=== PATIENT | male | born 1990 | race Caucasian/White ===

== ENCOUNTER 2021-12-29 06:35 | Outpatient (CLI) | payer BC, SELFPAY ==
--- NOTE | 2021-12-29 | US_ITS ---
WS: [id number] RIGHT UPPER QUADRANT ULTRASOUND HISTORY: GALLBLADDER FOR PAIN RUQ COMPARISON: None available. Liver: 20.1 cm in length. Liver is moderately enlarged with mildly coarsened echotexture throughout. Most consistent with hepatic steatosis. No bile duct dilatation. Portal Vein: Normal hepatopetal flow with monophasic waveform. Gallbladder: Normally distended gallbladder with no stones or wall thickening. CBD: 0.5 cm Pancreas: Normal size and echogenicity. Right kidney: 11.7 cm in length. Normal size and echogenicity. No hydronephrosis or mass. Aorta and IVC: Unremarkable abdominal aorta and IVC. No ascites. Patient directed the box feeder to the palpable area along the midline which appears related to the xiphoid process. US/US abdomen limited [id number] IMPRESSION: 1. Moderate hepatomegaly and hepatic steatosis. 2. Negative gallbladder.
== END 2021-12-29 06:36 | disposition home or self-care (01) ==
LOC: RAD 06:36
PROVIDERS: PCP Family Medicine; Visit Provider Pediatrics
DX: R10.13 Epigastric pain (principal); R10.11 Right upper quadrant pain; R16.0 Hepatomegaly, not elsewhere classified; K76.0 Fatty (change of) liver, not elsewhere classified
CPT/HCPCS: 76705

== ENCOUNTER 2024-03-07 01:34 | Emergency (ER) | payer BC, SELFPAY ==
[2024-03-07 01:37] VITALS: BP 207/145; PULSE 94; RESP 18; O2SAT 97; BMI 45.0
--- NOTE | 2024-03-07 01:49 | XRR_ITS ---
PROCEDURE INFORMATION: Exam: XR Right Shoulder Exam date and time: 03/07/2024 2:22 AM Age: 34 years old Clinical indication: Pain and injury or trauma; Other: Reached for a glass; Other: Lrom; Shoulder; Right; Additional info: Right shoulder pain TECHNIQUE: Imaging protocol: Radiologic exam of the right shoulder. Views: 2 or more views. COMPARISON: No relevant prior studies available. FINDINGS: Bones/joints: No evidence of acute fracture or dislocation. No erosive disease. No significant degenerative change. Soft tissues: Normal. XR/XR shoulder RT min 2V* [id number] IMPRESSION: No acute bony injury.
--- NOTE | 2024-03-07 02:00 | W.ED.EXTPRO ---
HPI - Extremity Problem General: Chief complaint: Extremity Injury, Upper Stated complaint: Right shoulder pain Time Seen by Provider: 03/07/24 01:55 History of Present Illness: Patient presents to the ER with right shoulder pain. Patient says he was reaching for a glass of water when he felt a pop and had instantaneous sharp stabbing burning pain. Pain has improved a little bit when he keeps his arm pain to his side and does not move it. Patient has very limited range of motion secondary to pain. Patient does not have any prior shoulder problems. Related Data Home Medications Medication Instructions Recorded Confirmed blood sugar diagnostic (ReliOn 12/04/21 12/04/21 Prime Test Strips) blood-glucose meter (ReliOn 12/04/21 12/04/21 All-In-One Meter kit) ergocalciferol (vitamin D2) 1,250 1,250 mcg PO DAILY 12/04/21 03/07/24 mcg (50,000 unit) capsule fluconazole 150 mg tablet 150 mg PO DAILY 12/04/21 03/07/24 insulin needles (disposable) 30 X 12/04/21 12/04/21 3/4 lancing device 12/04/21 12/04/21 lisinopril 5 mg tablet 5 mg PO DAILY 12/04/21 03/07/24 metformin 500 mg tablet 500 mg PO BID 12/04/21 03/07/24 nystatin 100,000 unit/gram topical 1 applic topical BID 12/04/21 03/07/24 cream Previous Rx's Medication Instructions Recorded meloxicam 7.5 mg tablet 7.5 mg PO .Twice daily #14 tabs 03/07/24 Allergies Allergy/AdvReac Type Severity Reaction Status Date / Time ampicillin Allergy ALGY-Hives Verified 03/07/24 01:42 Review of Systems General: Reports: 10 or more systems reviewed and unremarkable except in HPI and below Physical Exam Const: COMMON NORMALS: no acute distress, average body habitus, patient oriented x3, no limitations, healthy appearing, alert and well nourished HENMT: COMMON NORMALS: normocephalic, atraumatic, hearing grossly normal bilaterally, Normal external nose present and moist oral mucous membranes HEAD & SCALP: normocephalic and atraumatic NOSE: Normal external nose present Neck/C-Spine: COMMON NORMALS: full ROM, no lymphadenopathy, supple, no meningeal signs, no JVD and Thyroid normal THYROID: Thyroid normal Chest: COMMONS NORMALS: normal inspection of the chest and normal palpation of entire chest wall Resp: COMMON NORMALS: normal respiratory effort, No retractions, No use of accessory muscles and clear to auscultation bilaterally AUSCULTATION: clear to auscultation bilaterally Cardio: COMMON NORMALS: no JVD, regular rate, regular rhythm, S1 normal heart sound present, S2 normal heart sound present, No gallops present (Cardio), No clicks present (Cardio), No murmurs present (Cardio) and No rub (Cardio) RATE: regular rate RHYTHM: regular rhythm HEART SOUNDS: S1 normal heart sound present and S2 normal heart sound present GI: COMMON NORMALS: Normal to inspection, nondistended, normoactive bowel sounds present, Soft to palpation, non-tender, No hepatosplenomegaly present and no masses PALPATION: Yes Soft to palpation and Yes No hepatosplenomegaly present Extremity: NARRATIVE EXTREMITY EXAM: Limited range of motion secondary to pain, no obvious step-off deformity crepitus, very tender to palpation over anterior shoulder joint and AC joint region. Neuro: COMMON NORMALS: patient oriented x3 SENSORIUM/ORIENTATION: Yes alert MENINGEAL SIGNS: Yes no meningeal signs Course Vital Signs: Vital signs: Vital Signs Pulse Rate 94 03/07/24 01:37 Respiratory Rate 18 03/07/24 01:37 Blood Pressure 207/145 03/07/24 01:37 Pulse Oximetry 97 03/07/24 01:37 Oxygen Delivery Me thod Room Air 03/07/24 01:37 MDM - Extremity (Nontraumatic) Medical Decision Making Patient declined pain medicine, x-ray was read off as negative by the radiologist, patient was placed in a sling and sent home with meloxicam and should follow-up with his PCP. Medical Records I reviewed the patient's medical records. Lab Data I reviewed the patient's lab results. Radiology Impressions Shoulder X-Ray 03/07/24 01:49 IMPRESSION: No acute bony injury. All radiology interpretation(s) finalized by discharge Discharge Plan Discharge Patient Disposition: Home Clinical Impression: Acute pain of right shoulder Condition: Stable Prescriptions: New meloxicam 7.5 mg tablet 7.5 mg PO .Twice daily Qty: 14 0RF No Action (DME) ReliOn Prime Test Strips Strip See Rx Instructions .ROUTE Rx Instructions: As directed fluconazole 150 mg tablet 150 mg PO DAILY metformin 500 mg tablet 500 mg PO BID ergocalciferol (vitamin D2) 1,250 mcg (50,000 unit) capsule 1,250 mcg PO DAILY lisinopril 5 mg tablet 5 mg PO DAILY (DME) lancing device Misc See Rx Instructions .ROUTE Rx Instructions: As directed nystatin 100,000 unit/gram cream 1 applic topical BID (DME) blood-glucose meter [ReliOn All-In-One Meter] Kit See Rx Instructions .ROUTE Rx Instructions: As directed (DME) insulin needles (disposable) 30 X 3/4 needle See Rx Instructions .ROUTE Rx Instructions: As directed Discharge Orders: Discharge ED (Routine); Ordered 03/07/24 Ordered By: Castillo Ledezma Referrals: Dwain Elliott [Primary Care Provider] - 1 week Patient Instructions: Shoulder Pain (ED) Activity Restrictions/Additional Instructions: Your x-rays were read by the radiologist as no acute fracture, you have pain medicine that has been sent to your pharmacy please take it as directed as needed. Please follow-up with your family practice physician within the next 7 days for further evaluation and treatment. Coding Level of Care Code ED Professional Architect for Frdei Avila
[2024-03-07 04:01] VITALS: BP 167/132; PULSE 86; RESP 18; O2SAT 97
== END 2024-03-07 04:03 | disposition home or self-care (01) ==
PROVIDERS: Emergency Provider Emergency Medicine; PCP Family Medicine
DX: M25.511 Pain in right shoulder (principal); Z79.84 Long term (current) use of oral hypoglycemic drugs
CPT/HCPCS: 73030; 99283

== ENCOUNTER 2025-02-05 19:25 | Emergency (ER) | payer OTHER, SELFPAY ==
[2025-02-05 19:40] VITALS: BP 190/121; PULSE 103; RESP 14; TEMP 36.7; O2SAT 97
--- OUTSIDE RECORDS SUMMARY | 2025-02-05 19:43 | XMS_ITS | Clinical Summary ---
Author Organization 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
[2025-02-05 19:49] VITALS: O2SAT 98
--- NOTE | 2025-02-05 20:03 | W.ED.BACK ---
HPI - Back Pain/Injury General: Chief Complaint: Back Pain/Injury Stated Complaint: Lower RT pain back, hard to move Time Seen by Provider: 02/05/25 19:40 History of Present Illness: Patient is a 35-year-old gentleman without medical issues, not on medications, reported to ED with right low midline back tenderness radiates to his leg. This occurred on Wednesday, 5 days ago. He did not have any trauma. He stated he was moving stuff at work. No groin numbness or tingling. No incontinence or retention of urine or feces. Associated symptoms: Deny abdominal pain, chills, dysuria, fever(s), nausea or vomiting Related Data Home Medications ?Medication ?Instructions ?Recorded ?Confirmed blood sugar diagnostic (ReliOn 12/04/21 12/04/21 Prime Test Strips) blood-glucose meter (ReliOn 12/04/21 12/04/21 All-In-One Meter kit) ergocalciferol (vitamin D2) 1,250 1,250 mcg PO DAILY 12/04/21 03/07/24 mcg (50,000 unit) capsule fluconazole 150 mg tablet 150 mg PO DAILY 12/04/21 03/07/24 insulin needles (disposable) 30 X 12/04/21 12/04/21 3/4 lancing device 12/04/21 12/04/21 lisinopril 5 mg tablet 5 mg PO DAILY 12/04/21 03/07/24 metformin 500 mg tablet 500 mg PO BID 12/04/21 03/07/24 nystatin 100,000 unit/gram topical 1 applic topical BID 12/04/21 03/07/24 cream Previous Rx's ?Medication ?Instructions ?Recorded meloxicam 7.5 mg tablet 7.5 mg PO .Twice daily #14 tabs 03/07/24 ketorolac 10 mg tablet 10 mg PO Q8H PRN pain 5 days #14 02/05/25 tabs methocarbamol 500 mg tablet 500 mg PO Q8H PRN muscle spasm #30 02/05/25 tabs methylprednisolone 4 mg tablets in See Rx Instructions PO .COMPLEX 02/05/25 a dose pack (Medrol (David)) #21 ea Allergies Allergy/AdvReac Type Severity Reaction Status Date / Time ampicillin Allergy ALGY-Hives Verified 02/05/25 19:44 Penicillins Allergy ALGY-Hives Verified 02/05/25 19:44 Review of Systems General: Reports: 10 or more systems reviewed and unremarkable except in HPI and below Const: Denies: fever(s) or chills Eyes: Denies: change in vision or blurry vision ENMT: Denies: throat pain or mouth pain Card: Denies: chest pain or palpitations Resp: Denies: dyspnea or non-productive cough GI: Denies: abdominal pain, nausea or vomiting : Denies: flank pain, difficulty urinating or dysuria Musc: Reports: back pain and extremity pain; Denies: neck pain, extremity swelling, joint pain or joint swelling Skin/Breast: Denies: rash or pruritus Neuro: Denies: headache(s), numbness in extremities or weakness in extremities Psych: Denies: anxiety or depression Physical Exam Const: COMMON NORMALS: no acute distress, average body habitus, patient oriented x3 and no limitations HENMT: COMMON NORMALS: normocephalic and atraumatic HEAD & SCALP: normocephalic and atraumatic Neck/C-Spine: COMMON NORMALS: full ROM and no lymphadenopathy Resp: COMMON NORMALS: normal respiratory effort, No retractions and clear to auscultation bilaterally AUSCULTATION: clear to auscultation bilaterally GI: COMMON NORMALS: Normal to inspection, nondistended, normoactive bowel sounds present, Soft to palpation and non-tender PALPATION: Yes Soft to palpation Back/Pelvis: LUMBAR SPINE/LOWER BACK: Yes lumbar ROM normal, Yes straight leg raise positive right Straight leg raise positive details right: at 70 degrees and Yes straight leg raise positive left Straight leg raise positive details left: at 30 degrees SACROILIAC JOINTS: Yes SI joint(s) abnormal SI joint details: tender to palpation (right) and pain elicited by compression of iliac crest maneuver COCCYX: no swelling and no tenderness Neuro: COMMON NORMALS: patient oriented x3 Course Vital Signs: Vital signs: Vital Signs Temperature 98.0 F 02/05/25 19:40 Pulse Rate 103 H 02/05/25 19:40 Respiratory Rate 14 02/05/25 19:40 Blood Pressure 190/121 02/05/25 19:40 Pulse Oximetry 98 02/05/25 19:49 Oxygen Delivery Me thod Room Air 02/05/25 19:49 MDM - Back Pain/Injury Medical Decision Making Patient is a 35-year-old male with right SI pain, left straight raise positive. This is consistent with sciatica on the right side. Discussed this with patient. He will ice the area, take his Medrol Dosepak at home, and ketorolac sparingly as discussed. He is to follow-up with primary care regarding this sciatica as well as his blood pressure. Discussed with patient. He states understanding. Discussed with patient there is no need for x-ray since no injury occurred. Medical Records I reviewed the patient's medical records. Labs I reviewed the patient's lab results. no labs No radiology studies performed this visit Discharge Plan Discharge Patient Disposition: Home Clinical Impression: Sciatica Qualifiers: Laterality: right Qualified Code(s): M54.31 - Sciatica, right side Condition: Stable Prescriptions: New methylprednisolone [Medrol (David)] 4 mg tablets,dose pack See Rx Instructions .ROUTE .COMPLEX Qty: 21 0RF Rx Instructions: for 6 days ketorolac 10 mg tablet 10 mg PO Q8H PRN (Reason: pain) 5 Days Qty: 14 0RF methocarbamol 500 mg tablet 500 mg PO Q8H PRN (Reason: muscle spasm) Qty: 30 0RF No Action (DME) ReliOn Prime Test Strips Strip See Rx Instructions .ROUTE Rx Instructions: As directed fluconazole 150 mg tablet 150 mg PO DAILY metformin 500 mg tablet 500 mg PO BID ergocalciferol (vitamin D2) 1,250 mcg (50,000 unit) capsule 1,250 mcg PO DAILY lisinopril 5 mg tablet 5 mg PO DAILY (DME) lancing device Misc See Rx Instructions .ROUTE Rx Instructions: As directed nystatin 100,000 unit/gram cream 1 applic topical BID (DME) blood-glucose meter [ReliOn All-In-One Meter] Kit See Rx Instructions .ROUTE Rx Instructions: As directed (DME) insulin needles (disposable) 30 X 3/4 needle See Rx Instructions .ROUTE Rx Instructions: As directed meloxicam 7.5 mg tablet 7.5 mg PO .Twice daily Qty: 14 0RF Discharge Orders: Discharge ED (Routine); Ordered 02/05/25 Ordered By: Elizabeth Cardenas Referrals: Dwain Elliott [Primary Care Provider, Family Practice] Discharge Diet: Low Salt Discharge Activity: Resume usual activity Patient Instructions: Sciatica (ED), Patient Portal & Marine Instructions Activity Restrictions/Additional Instructions: Do not utilize ibuprofen, meloxicam over the next 1 week since you will be taking ketorolac and Medrol Dosepak. Obtain famotidine/Pepcid [id number] and take twice daily for stomach protection. Avoid alcohol. You may utilize Tylenol as well as the above prescription for pain. Muscle relaxer methocarbamol, take as directed. Avoid use during driving due to concern of tiredness, sedation. Do not utilize with heavy equipment. Return to ED with worsening pain. Case management will call you with follow-up with primary care. You need further help with your blood pressure. Print Language: Macedonian Coding Level of Care Code ED Hotel Reservationist for Fredi Avila
[2025-02-05] MEDS: orphenadrine 30 mg/mL Inj 2 mL 60 MG IM (20:21)
[2025-02-05 20:30] VITALS: BP 191/123; PULSE 100; RESP 18; O2SAT 96
--- NOTE | 2025-02-08 07:19 | DCPLANNER ---
messaged [facility] to establish pcp
== END 2025-02-05 20:32 | disposition home or self-care (01) ==
PROVIDERS: Emergency Provider Physician Assistant; PCP Family Medicine
DX: M54.31 Sciatica, right side (principal); Z79.84 Long term (current) use of oral hypoglycemic drugs
CPT/HCPCS: 96372; 99284; J1100; J1885; J2360

== ENCOUNTER 2025-02-05 23:07 | Emergency (ER) | payer OTHER, SELFPAY ==
[2025-02-05 23:15] VITALS: PULSE 107; RESP 20; TEMP 36.7; O2SAT 100
--- NOTE | 2025-02-05 23:49 | W.ED.BACK ---
HPI - Back Pain/Injury General: Chief Complaint: Back Pain/Injury Stated Complaint: Pain in lower RT hip Time Seen by Provider: 02/05/25 23:34 History of Present Illness: Patient comes in with right lower back pain that radiates into his right hip and right thigh. He describes it as sharp, burning/lightening that radiates around his hip and leg. States no injury that he knows of. States that it started about 4 to 5 days ago after he was moving and lifting some heavy stuff at work. Denies urinary retention, perianal numbness, or leg muscle weakness. States he was seen here earlier and started on methocarbamol, Medrol Dosepak, and ketorolac p.o. States that he sat down was watching TV when he got up it began to hurt worse. States that now he has trouble even walking secondary to the pain. On physical exam he does have tenderness to palpation his right lower back lateral to midline. He has pain in his back but not in his hip joint with passive range of motion. Positive straight leg raise test on the right. He has normal extension and flexion of bilateral hips, bilateral knees, bilateral ankles, bilateral great toes. Will give him a dose of p.o. Valium 5 mg, 500 mg of p.o. naproxen, and reassess. Related Data Home Medications ?Medication ?Instructions ?Recorded ?Confirmed blood sugar diagnostic (ReliOn 12/04/21 12/04/21 Prime Test Strips) blood-glucose meter (ReliOn 12/04/21 12/04/21 All-In-One Meter kit) ergocalciferol (vitamin D2) 1,250 1,250 mcg PO DAILY 12/04/21 03/07/24 mcg (50,000 unit) capsule fluconazole 150 mg tablet 150 mg PO DAILY 12/04/21 03/07/24 insulin needles (disposable) 30 X 12/04/21 12/04/21 3/4 lancing device 12/04/21 12/04/21 lisinopril 5 mg tablet 5 mg PO DAILY 12/04/21 03/07/24 metformin 500 mg tablet 500 mg PO BID 12/04/21 03/07/24 nystatin 100,000 unit/gram topical 1 applic topical BID 12/04/21 03/07/24 cream Previous Rx's ?Medication ?Instructions ?Recorded meloxicam 7.5 mg tablet 7.5 mg PO .Twice daily #14 tabs 03/07/24 ketorolac 10 mg tablet 10 mg PO Q8H PRN pain 5 days #14 02/05/25 tabs methocarbamol 500 mg tablet 500 mg PO Q8H PRN muscle spasm #30 02/05/25 tabs methylprednisolone 4 mg tablets in See Rx Instructions PO .COMPLEX 02/05/25 a dose pack (Medrol (David)) #21 ea diazepam 5 mg tablet (Valium) 5 mg PO Q8H PRN muscle spasm #10 02/06/25 tabs Allergies Allergy/AdvReac Type Severity Reaction Status Date / Time ampicillin Allergy ALGY-Hives Verified 02/05/25 23:19 Penicillins Allergy ALGY-Hives Verified 02/05/25 23:19 Review of Systems Musc: Reports: back pain Physical Exam Const: COMMON NORMALS: healthy appearing HENMT: COMMON NORMALS: normocephalic and atraumatic HEAD & SCALP: normocephalic and atraumatic Eye: COMMON NORMALS: Equal, round and reactive pupils present and EOMs intact bilaterally PUPIL: Yes Equal, round and reactive pupils present Neck/C-Spine: COMMON NORMALS: full ROM and supple Resp: COMMON NORMALS: normal respiratory effort, No retractions and No use of accessory muscles Back/Pelvis: OTHER: Tenderness to palpation in the right lower back lateral to midline with palpable muscle tightness, positive straight leg raise test, no pain in the right hip joint with passive range of motion, normal flexion and extension of bilateral hips, bilateral knees, bilateral ankles, bilateral great toes Course Vital Signs: Vital signs: Vital Signs Temperature 98.0 F 02/05/25 23:15 Pulse Rate 107 H 02/05/25 23:15 Respiratory Rate 20 H 02/05/25 23:15 Pulse Oximetry 100 02/05/25 23:15 Oxygen Delivery Me thod Room Air 02/05/25 23:15 MDM - Back Pain/Injury Medical Decision Making On reassessment the patient is feeling a little better after the Valium. He states he was able to get up to the bedside and use the urinal. We discussed continuing the steroids, anti-inflammatories, heat. Using the Valium as a muscle relaxer as needed, and limiting how much he uses his back over the next few days. Will discharge at this time with precautions to return for worsening or changing symptoms. No radiology studies performed this visit Discharge Plan Discharge Patient Disposition: Home Clinical Impression: Muscle spasm of back Sciatica Qualifiers: Laterality: right Qualified Code(s): M54.31 - Sciatica, right side Condition: Stable Prescriptions: New diazepam [Valium] 5 mg tablet 5 mg PO Q8H PRN (Reason: muscle spasm) Qty: 10 0RF No Action (DME) ReliOn Prime Test Strips Strip See Rx Instructions .ROUTE Rx Instructions: As directed fluconazole 150 mg tablet 150 mg PO DAILY metformin 500 mg tablet 500 mg PO BID ergocalciferol (vitamin D2) 1,250 mcg (50,000 unit) capsule 1,250 mcg PO DAILY lisinopril 5 mg tablet 5 mg PO DAILY (DME) lancing device Misc See Rx Instructions .ROUTE Rx Instructions: As directed nystatin 100,000 unit/gram cream 1 applic topical BID (DME) blood-glucose meter [ReliOn All-In-One Meter] Kit See Rx Instructions .ROUTE Rx Instructions: As directed (DME) insulin needles (disposable) 30 X 3/4 needle See Rx Instructions .ROUTE Rx Instructions: As directed meloxicam 7.5 mg tablet 7.5 mg PO .Twice daily Qty: 14 0RF methylprednisolone [Medrol (David)] 4 mg tablets,dose pack See Rx Instructions .ROUTE .COMPLEX Qty: 21 0RF Rx Instructions: for 6 days ketorolac 10 mg tablet 10 mg PO Q8H PRN (Reason: pain) 5 Days Qty: 14 0RF methocarbamol 500 mg tablet 500 mg PO Q8H PRN (Reason: muscle spasm) Qty: 30 0RF Discharge Orders: Discharge ED (Routine); Ordered 02/06/25 Ordered By: Rich Hassan Referrals: Dwain Elliott [Primary Care Provider, Family Practice] Patient Instructions: Muscle Spasm (ED), Pain Management, Patient Portal & Marine Instructions Print Language: Tamazight Coding Level of Care Code ED Loading Machine Operator Helper for Fredi Avila
[2025-02-06 01:57] VITALS: BP 142/80; PULSE 81; RESP 17; O2SAT 97
== END 2025-02-06 01:58 | disposition home or self-care (01) ==
PROVIDERS: Emergency Provider Emergency Medicine; PCP Family Medicine
DX: M62.830 Muscle spasm of back (principal); M54.31 Sciatica, right side; Z79.84 Long term (current) use of oral hypoglycemic drugs
CPT/HCPCS: 99283; J9999